=== PATIENT | female | born 1995 | race Caucasian/White ===

== ENCOUNTER 2024-01-04 03:39 | Emergency (ER) | payer SELFPAY ==
[~2024-01-04] VITALS: Ht 165.1 cm; Wt 66.7 kg
[2024-01-04 04:03] VITALS: BP 135/84; PULSE 86; RESP 16; TEMP 97.7; O2SAT 99
== END 2024-01-04 04:10 ==
LOC: MED 03:39
DX: V89.2XXA Person injured in unspecified motor-vehicle accident, traffic, initial encounter; Y93.89 Activity, other specified; Y92.89 Other specified places as the place of occurrence of the external cause; Y99.8 Other external cause status
CPT/HCPCS: 99283